=== PATIENT | male | born 1980 | race Caucasian/White ===

== ENCOUNTER 2019-08-10 10:48 | Outpatient (CLI) | payer BC ==
--- NOTE | 2019-08-10 12:17 | RAD ---
LEFT KNEE 4 VIEWS: Date: 08/10/2019 HISTORY: Left knee pain. FINDINGS/IMPRESSION: No fracture, dislocation, or bony destruction is seen. There are mild degenerative changes in the med ial tibiofemoral compartment. POS: [id number]
== END 2019-08-10 10:49 | disposition home or self-care (01) ==
LOC: NAV RAD 10:48
PROVIDERS: ATTEND Nurse Practitioner Adult Health
DX: M25.562 Pain in left knee (principal); M25.462 Effusion, left knee; G89.29 Other chronic pain; M17.12 Unilateral primary osteoarthritis, left knee

== ENCOUNTER 2024-01-09 08:44 | Emergency (ER) | payer BC ==
[2024-01-09] MEDS ORDERED: Ketorolac Tromethamine 30 MG (1 mL) VIAL ONE (09:07)
== END 2024-01-09 09:48 | disposition home or self-care (01) ==
LOC: NAV ERS 08:44
DX: S29.011A Strain of muscle and tendon of front wall of thorax, initial encounter (principal); I10 Essential (primary) hypertension; F17.210 Nicotine dependence, cigarettes, uncomplicated; Z79.899 Other long term (current) drug therapy; W18.30XA Fall on same level, unspecified, initial encounter
CPT/HCPCS: 96372; 99283; J1885